=== PATIENT | male | born 1955 | race Caucasian/White ===

== ENCOUNTER 2016-12-01 10:06 | Emergency (ER) | payer OTHER | END 2016-12-01 11:32 | disposition home or self-care (01) | LOC: FER 10:06 | DX: H60.11 Cellulitis of right external ear (principal); I11.9 Hypertensive heart disease without heart failure; E11.9 Type 2 diabetes mellitus without complications; E78.5 Hyperlipidemia, unspecified; N40.0 Benign prostatic hyperplasia without lower urinary tract symptoms; M54.2 Cervicalgia; G89.29 Other chronic pain; Z79.4 Long term (current) use of insulin; Z79.84 Long term (current) use of oral hypoglycemic drugs; Z79.899 Other long term (current) drug therapy | CPT/HCPCS: 99282 ==

== ENCOUNTER 2021-12-20 14:36 | Emergency (ER) | payer MEDICARE, OTHER ==
[~2021-12-20 14:36] MED LIST: ASPIRIN EC81 MG PO; CLARITIN10 M2 PO; COZAAR 25MG TAB25 MG PO; CYCLOBENZAPRINE10 MG PO; CYCLOBENZAPRINE5 MG PO; CYMBALTA 30MG C30 MG PO; CYMBALTA60 MG PO; DULOXETINE HCL30 MG PO; FLEXERIL10 MG PO; FLEXERIL5 MG PO; FLOMAX0.4 MG PO; FLONASE ALLER15.8 ML; GABAPENTIN600 MG PO; GABAPENTIN800 MG PO; HORIZANT600 MG PO; HYDROCODON-ACE1 EAC6 PO; INVOKANA300 MG PO; LOVAZA1 GM PO; METFORMIN HCL500 MG PO; NEURONTIN800 MG PO; OSTEO BI-FLEX1 EAC1 PO; PRANDIN2 MG PO; PRILOSEC20 MG PO; TRULICITY0.75 MG/0. SC; VICODIN 10/3251 EACH PO; ZOCOR20 MG PO
== END 2021-12-20 16:15 | disposition home or self-care (01) ==
LOC: FER 14:36
DX: S61.215A Laceration without foreign body of left ring finger without damage to nail, initial encounter (principal); E11.9 Type 2 diabetes mellitus without complications; I10 Essential (primary) hypertension; Z23 Encounter for immunization; Z88.2 Allergy status to sulfonamides; W11.XXXA Fall on and from ladder, initial encounter; Y92.009 Unspecified place in unspecified non-institutional (private) residence as the place of occurrence of the external cause
CPT/HCPCS: 90471; 90715